=== PATIENT | male | born 1955 | race African-American/Black ===

== ENCOUNTER 2020-10-04 13:12 | Emergency (ER) | payer MEDICARE, OTHER, SELFPAY ==
[2020-10-04 13:16] VITALS: BP 169/85; PULSE 68; O2SAT 100
[2020-10-04 13:17] VITALS: BP 169/85; PULSE 74; RESP 16; TEMP 35.8; O2SAT 100; BMI 36.8
--- NOTE | 2020-10-04 13:41 | ED.BACK ---
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 He states that over the past several days/week he has had increasing discomfort to his left lower back which is where he normally has this discomfort and having radiation down his left leg. He does not know a specific cause of these symptoms. Has been doing the stretches that he has been prescribed in the past by physical therapy without much improvement. He is not currently under the care of a orthopedic spine provider. No fevers. No urinary symptoms. No change in bowel habits. Related Data Previous Rx's Medication Instructions Recorded cyclobenzaprine 10 mg PO TID PRN #12 tab 10/04/20 hydrocodone-acetaminophen 1 tab PO Q4-6H PRN #10 tab 10/04/20 prednisone 40 mg PO DAILY 3 Days #6 tab 10/04/20 Allergies Allergy/AdvReac Type Severity Reaction Status Date / Time No Known Drug Allergies Allergy Verified 10/04/20 13:20 Review of Systems Constitutional Constitutional: Denies fever(s) Musculoskeletal Musculoskeletal: Reports back pain and Reports radiating pain into limb Integumentary/Breasts Skin/Breast: Denies rash Neurologic Neurologic: Reports paresthesias Psychiatric Psychiatric: Reports system reviewed and no additional complaints, except as documented Hematologic/Lymphatic On Anticoagulants: No Allergic/Immunologic Allergic/Immunologic: Reports system reviewed and no additional complaints, except as documented Patient History Medical History Chronic low back pain Social History Smoking Status: Never smoker Smoking Status: Never smoker Substance Use Type: does not use Exam Initial Vital Signs Initial Vital Signs: Vital Signs Temperature 96.5 F L 10/04/20 13:17 Pulse Rate 74 10/04/20 13:17 Respiratory Rate 16 10/04/20 13:17 Blood Pressure 169/85 H 10/04/20 13:17 Pulse Oximetry 100 10/04/20 13:17 Const General: cooperative and comfortable Limitations: mental status not altered HENMT Head: normal to inspection and normocephalic Resp Effort & Inspection: normal respiratory effort Auscultation: clear to auscultation bilaterally Cardio Rate: regular rate Rhythm: regular rhythm GI Inspection: non-distended Back/Spine/Pelvis Thoracic/Lumbar Spine: No paraspinal tenderness, No thoracic spinal tenderness and No lumbar spinal tenderness Sacroiliac Joints: No nontender and No tender to palpation Skin Other: Well-healed surgical scar lower back consistent with his stated history Neuro General: patient alert, patient awake and patient oriented x3 Extrem General: normal to inspection and capillary refill normal Psych Appearance: grossly normal and well kempt Course Orders Ordered: Discontinued Medications Hydromorphone HCl (Hydromorphone 1 Mg Inj) 1 mg IM NOW ONE Stop: 10/04/20 13:42 Last Admin: 10/04/20 13:56 Dose: 1 mg Documented by: Ketorolac Tromethamine (Ketorolac 30 Mg/Ml Vial) 30 mg IM NOW ONE Stop: 10/04/20 13:42 Last Admin: 10/04/20 13:56 Dose: 30 mg Documented by: Vital Signs Vital signs: Vital Signs - 8 hr 10/04/20 13:17 Temperature 96.5 F L Pulse Rate 74 Respiratory Rate 16 Blood Pressure 169/85 H Pulse Oximetry 100 MDM - Back Pain/Injury MDM Narrative Medical decision making narrative: I do have low suspicion for cauda equina. There is no specific injury that caused the increase in his discomfort. I feel that we can hold on further radiologic studies for now. Will attempt to control symptoms with medications. He is going to contact his primary doctor for follow-up. He expressed understanding and agreement. Discharge Plan Departure Patient Disposition: Home Clinical Impression: Back pain Instructions: DI for Low Back Pain Activity Restrictions/Additional Instructions: Recommend you take all the medications as directed. Contact your primary provider for a follow-up. Return to the emergency department for any new or worsening symptoms Prescriptions: New prednisone 20 mg tablet 40 mg PO DAILY 3 Days Qty: 6 RF: 0 cyclobenzaprine 10 mg tablet 10 mg PO TID PRN (Reason: muscle spasm) Qty: 12 RF: 0 hydrocodone-acetaminophen 5-325 mg tablet 1 tab PO Q4-6H PRN (Reason: pain) Qty: 10 RF: 0 Referrals: Mitchell Arthur MD [Primary Care Provider] -
[2020-10-04] MEDS: KETOROLAC 30 MG/ML VIAL IM (13:56)
[2020-10-04] MEDS: HYDROMORPHONE 1 MG INJ IM (13:56)
[2020-10-04 14:26] VITALS: BP 171/81
== END 2020-10-04 14:29 | disposition home or self-care (01) ==
PROVIDERS: Emergency Provider Emergency Medicine; PCP Anesthesiology
DX: M54.5 Low back pain (principal)
CPT/HCPCS: 96372; 99283; J1170; J1885

== ENCOUNTER → 2021-03-18 18:16 | Outpatient (CLI) | payer MEDICARE, OTHER, SELFPAY ==
--- NOTE | 2021-03-18 18:19 | DI.MRI.S_ITS ---
PROCEDURE: MR LUMBAR SPINE WO CON INDICATIONS: RADICULOPATHY, LUMBAR REGION TECHNIQUE: Noncontrast sagittal T1 spin echo and T2 fast echo, sagittal STIR, axial T1 and T2 fast spin echo through the lumbar spine. In cases with scoliosis, additional coronal T2 fast spin echo may be performed. COMPARISON: [facility], CR, SPINE LUMB MIN 4VW, 01/26/2009, 9:47. FINDINGS: Image quality: Excellent. Alignment and Curvature: Trace degenerative anterolisthesis of L4 on L5. Trace degenerative retrolisthesis of L5 on S1. Bone Marrow: Marrow is of normal overall signal. No acute vertebral body compression fractures. Spinal Cord: Conus medullaris terminates at the L1 level. Visualized cord demonstrates normal signal and size. Paraspinous Soft Tissues: No paravertebral masses. T12-L1: No canal stenosis or foraminal stenosis. L1-L2: No canal stenosis or foraminal stenosis. L2-L3: Mild disc bulge. Mild facet and ligament hypertrophy. Mild canal stenosis. Mild bilateral foraminal stenosis. L3-L4: Disc bulge. Facet and ligament hypertrophy. Short pedicles. Moderate canal stenosis. [id number]-dhjgtfyb bilateral foraminal stenosis. L4-L5: Disc bulge. Facet and ligament hypertrophy. Moderate canal stenosis. Moderate bilateral foraminal stenosis with mild flattening deformity on the exiting bilateral L4 nerve roots. L5-S1: Disc bulge. Mild canal stenosis. Moderate bilateral foraminal stenosis with mild flattening deformity on the exiting bilateral L5 nerve roots. IMPRESSION: 1. Multilevel canal stenosis, mild at L2-L3, moderate at L3-L4, moderate at L4-L5, and mild at L5-S1. 2. Multilevel facet arthropathy. 3. Multilevel foraminal narrowing, including moderate bilateral foraminal narrowing at L4-L5 and L5-S1. Dictated by: Bryce Hammer M.D. on 03/21/2021 at 8:05 Approved by: Bryce Hammer M.D. on 03/21/2021 at 8:12
== END ==
PROVIDERS: PCP Anesthesiology; Referring Provider Student in an Organized Health Care Education/Training Program; Visit Provider Student in an Organized Health Care Education/Training Program
DX: M47.26 Other spondylosis with radiculopathy, lumbar region (principal); M48.061 Spinal stenosis, lumbar region without neurogenic claudication; M48.07 Spinal stenosis, lumbosacral region
CPT/HCPCS: 72148

== ENCOUNTER → 2021-11-25 12:39 | Outpatient (CLI) | payer MEDICARE, OTHER, SELFPAY ==
--- NOTE | 2021-11-25 | DI.ECHO.S_ITS ---
[facility] +---------+ : : [address] : : : : [id number] : : : : Phone: [phone]+ Echocardiogram Report + + :Name: STEFANIE MARTI Study Date: 11/25/2021 Height: 71 in : :[facility] ReadingLocation: Weight: 260 lb : : Gender: Male BSA: 2.4 m2 : :: 1955 Age: 66 yrs BP: 147/89 mmHg: :Reason For Study: Arrhythmia : :Ordering Physician: CARTER, : :ANASTACIA Performed By: Radames Rosario : :Referring: ANASTACIA THOMAS : + + Interpretation Summary 1) Normal left ventricular thickness, size, wall motion, and systolic function (EF 55-60%). 2) Normal right ventricular size and function. 3) Diastolic parameters suggest a pseudonormalization pattern, consistent with probable elevated filling pressures. 4) There is mild aortic regurgitation. 5) Compared to the Echo done 10/02/2018, no significant change. Procedure: A two-dimensional transthoracic echocardiogram with color flow and Doppler was performed. The study quality was technically adequate. Comparison is made with the echocardiogram of 10/02/2018. The patient was in normal sinus rhythm during the exam. Left Ventricle: The left ventricle is normal in size and wall thickness. Left ventricular systolic function is normal. The ejection fraction is estimated to be 55-60%. There are no focal wall motion abnormalities. Diastolic parameters suggest a pseudonormalization pattern, consistent with probable elevated filling pressures. Right Ventricle: The right ventricle is normal in size and function. Atria: The left atrium is moderately dilated. Right atrial size is normal. The interatrial septum grossly appears intact with no obvious evidence for an atrial septal defect. Mitral Valve: The mitral valve is normal in structure and function. There is mild mitral regurgitation. Aortic Valve: There is mild aortic valve sclerosis. The aortic valve is trileaflet. The aortic valve opens well. There is no aortic valve stenosis. There is mild aortic regurgitation. Tricuspid Valve: The tricuspid valve is normal in structure and function. There is a trace or physiologic amount of tricuspid regurgitation. Pulmonary artery pressures cannot be estimated because of the lack of a measurable TR jet velocity. Pulmonic Valve: The pulmonic valve is normal in structure and function. There is trace pulmonic regurgitation. Great Vessels: The aortic root is normal size. The dimensions of the ascending aorta are normal. The IVC is of normal diameter and collapses greater than 50% with a sniff. This suggests a low right atrial pressure of 3 mm Hg. Pericardium/ Pleura There is no pericardial effusion. There is no pleural effusion. MMode/2D Measurements & Calculations LVIDd: 5.5 cm LVOT diam: 2.1 cm LVIDs: 3.8 cm Ao root diam: 2.8 cm FS: 31.3 % asc Aorta Diam: 3.2 cm IVSd: 0.89 cm LVPWd: 0.96 cm LV perez. diameter/BSA (cm/m^2): 2.3 LV sys. diameter/BSA (cm/m^2): 1.6 LA A2 area: 24.4 cm2 RA long axis: 5.5 cm LA A4 area: 26.1 cm2 RA area: 19.0 cm2 LA length (vol): 6.1 cm RA vol: 56.2 ml LA vol: 88.0 ml RA : 23.9 ml/m2 LA vol index: 37.3 ml/m2 TAPSE: 2.1 cm Doppler Measurements & Calculations Ao V2 max: 169.8 cm/sec LVOT Max Chepe: 109.6 cm/sec Ao V2 mean: 123.2 cm/sec LV V1 max P.8 mmHg Ao max P.5 mmHg LV V1 VTI: 26.3 cm Ao mean P.6 mmHg MARIOLA(I,D): 2.1 cm2 Ao V2 VTI: 43.4 cm MARIOLA(V,D): 2.2 cm2 sev ratio: 0.61 MARIOLA indexed to BSA (cm^2/m^2): 0.89 AI P1/2t: 709.6 msec AI dec slope: 187.2 cm/sec2 MV E max chepe: 112.6 cm/sec SV(LVOT): 91.3 ml MV A max chepe: 100.9 cm/sec MV E/A: 1.1 Med Peak E' Chepe: 6.2 cm/sec E/E' med: 18.2 Lat Peak E' Chepe: 7.3 cm/sec E/E' lat: 15.4 E/e' average: 16.8 MV dec time: 0.23 sec Reading Physician:04:17 PM
--- NOTE | 2021-11-25 | DI.NM.S_ITS ---
PROCEDURE: NM EXERCISE TREADMILL NON NUC COMPARISON: None. INDICATIONS: Ventricular premature depolarization FINDINGS: the patient exercised for 5 minutes and 28 seconds, reaching 71% of maximum predicted heart rate suggesting submaximal study. 7.0 METs and ROD +23%, indicating mildly reduced exercise tolerance. Study terminated early due to lightheadedness that resolved during recovery. Appropriate BP response to exercise (resting BP 120/80mmHg, max BP 180/100mmHg). Rare PACs and rare PVCs present during the study. No ST changes with exercise or during recovery. IMPRESSION: Low risk submaximal treadmill ECG only stress test as only 71% of maximum predicted heart rate achieved. Study study prematurely due to lightheadedness. Dictated by: Ulysses Thomas MD on 11/25/2021 at 16:40 Approved by: Ulysses Thomas MD on 11/25/2021 at 16:43
[2021-11-25 13:51] LABS: COVID19 -Nasal RAPID Negative (Negative)
== END ==
PROVIDERS: PCP Student in an Organized Health Care Education/Training Program; Referring Provider Internal Medicine Cardiovascular Disease; Visit Provider Internal Medicine Cardiovascular Disease
DX: I49.3 Ventricular premature depolarization (principal); Z20.822 Contact with and (suspected) exposure to COVID-19; I35.1 Nonrheumatic aortic (valve) insufficiency
CPT/HCPCS: 87635; 93017; 93306